=== PATIENT | female | born 1990 | race Caucasian/White ===

== ENCOUNTER → 2016-07-05 | Day surgery (SDC) | payer OTHER ==
--- NOTE | 2016-07-03 16:51 | NUR ---
PER PT SHE HAS NOT BEEN GIVEN ANY INSTRUCTION ON BOWEL PREP INSTRUCTED PT TO CALL MD TO GET INSTRUCTIONS
== END | disposition home or self-care (01) ==
LOC: FAS 08:53
DX: K64.8 Other hemorrhoids (principal); Z90.49 Acquired absence of other specified parts of digestive tract; F32.9 Major depressive disorder, single episode, unspecified; Z88.2 Allergy status to sulfonamides; Z88.0 Allergy status to penicillin
CPT/HCPCS: 84703; J2704